=== PATIENT | male | born 1950 | race Caucasian/White ===

== ENCOUNTER → 2017-11-11 | Outpatient (CLI) | payer MEDICARE, OTHER ==
[~2017-11-11] MED LIST: AMLO5TAB2 PO; CATHETER FLUSH 10 ML SYR IV PRN; CHOL10007 PO; MULT1CAP27 PO; OMG1KC PO; PANT40TA2 PO; SUCR1TAB36 PO
[2017-11-11 09:22] VITALS: BP 136/63
--- NOTE | 2017-11-11 19:56 | STRESS TEST ---
DATE OF SERVICE: 11/11/2017 EXERCISE MYOVIEW STRESS TEST REPORT Baseline heart rate is 67. Baseline blood pressure 136/62. Baseline EKG is sinus rhythm with no ischemic changes. In summary, the patient was injected with 7.53 mCi of technetium-99 Myoview and the resting images were obtained. Then, the patient started exercising with the baseline heart rate, blood pressure and EKG mentioned above. The patient was able to exercise for 7 minutes on a standard Navi protocol. With peak exercise level, EKG was showing minimal nondiagnostic changes, blood pressure was 216/83. During recovery, heart rate and blood pressure returned to baseline, EKG returned to baseline. The resting and stress images were reviewed and compared in the short axis, horizontal long axis and vertical long axis views. Review of the images showed motion artifact with good radiotracer uptake. No significant ischemia or infarct was seen. SSS is 1. SDS 1. TID value 0.81. On the gated images, the left ventricle appeared to be in normal size with normal contractility, calculated ejection fraction 65%. CONCLUSION: 1. Good exercise tolerance, a total of 7 minutes on standard Navi protocol, total of 8.5 METs, achieving 90% of maximum expected heart rate. 2. Appropriate heart rate response to exercise with severe hypertensive response to exercise, returned to baseline during recovery. 3. Motion artifact with no significant ischemia or infarction on SPECT images. 4. Normal left ventricular size with normal contractility, calculated ejection fraction is 65%. Job ID: [id number] DocumentID: [id number] Dictated Date: 11/11/2017 12:03:38 [employer]ger Date: 11/11/2017 15:18:34 Dictated By: EVENS MARTEL MD
== END ==
LOC: CARD 08:01
PROVIDERS: ATTEND Internal Medicine Cardiovascular Disease
DX: I25.10 Atherosclerotic heart disease of native coronary artery without angina pectoris (principal); I10 Essential (primary) hypertension; R07.9 Chest pain, unspecified; Z72.0 Tobacco use
CPT/HCPCS: 78452; 93017

== ENCOUNTER → 2018-02-12 | Outpatient (CLI) | payer MEDICARE, OTHER ==
[~2018-02-12] MED LIST changes: +AZIT250T12 PO; -CATHETER FLUSH 10 ML SYR IV PRN; +CEPH-507 PO
--- NOTE | 2018-02-12 14:19 | Diagnostic Imaging Report ---
INDICATION: Pneumonia. COMPARISON: 06/30/2014 FINDINGS: Two views of the chest are obtained. Heart size is normal. The pulmonary vessels appear unremarkable. There is no pneumothorax, mediastinal widening or pleural fluid. The lungs are clear. There are degenerative changes in the spine. IMPRESSION: No acute abnormality is demonstrated. No interval change from the prior study. Dictated by: Dictated on workstation # [id number]
== END ==
LOC: LAB 13:48
PROVIDERS: ATTEND Internal Medicine
DX: J18.9 Pneumonia, unspecified organism (principal)
CPT/HCPCS: 71046

== ENCOUNTER → 2021-01-09 | Outpatient (CLI) | payer MEDICARE, OTHER ==
[~2021-01-09] MED LIST changes: +AMLO-250 PO; -AMLO5TAB2 PO
--- NOTE | 2021-01-09 16:43 | Diagnostic Imaging Report ---
PROCEDURE: US left lower extremity venous. TECHNIQUE: Multiple real-time grayscale images were obtained over the left lower extremity in various projections. Additional duplex Doppler and color Doppler images were also obtained. INDICATION: Pain FINDINGS: The left lower extremity femoropopliteal deep venous system showed normal compressibility and normal color flow and normal waveforms. There is no deep or visualized superficial thrombus. There is a complex fluid collection in the popliteal fossa 4 x 1.6 x 1.8 cm, likely complex or hemorrhagic Ruiz's cyst. No solid mass. There is a largely fatty lymph node elongated in the left groin likely reactive. IMPRESSION: Negative for venous thrombus. Complex likely hemorrhagic Ruiz's cyst in the popliteal fossa. Dictated by: Dictated on workstation # [id number]
== END ==
LOC: RAD 15:19
PROVIDERS: ATTEND Nurse Practitioner Family
DX: M71.22 Synovial cyst of popliteal space [Baker], left knee (principal)

== ENCOUNTER → 2021-03-17 | Outpatient (CLI) | payer MEDICARE, OTHER | LOC: CARD 13:00 | PROVIDERS: ATTEND Internal Medicine Cardiovascular Disease | DX: I11.9 Hypertensive heart disease without heart failure (principal) | CPT/HCPCS: 93306 ==

== ENCOUNTER → 2022-12-10 | Outpatient (CLI) | payer MEDICARE, OTHER ==
[2022-12-10 13:44] LABS: CREATINE KINASE MB 0.5 NG/ML (<6.6)
== END ==
LOC: LAB 13:02
PROVIDERS: ATTEND Nurse Practitioner Family
DX: R07.9 Chest pain, unspecified (principal)
CPT/HCPCS: 36415; 82553; 83874; 83880; 84484